=== PATIENT | male | born 1970 | race Caucasian/White ===

== ENCOUNTER 2017-04-25 18:33 | Emergency (ER) | payer MEDICARE, OTHER ==
[~2017-04-25] VITALS: Ht 180.3 cm; Wt 125.0 kg
[2017-04-25 18:45] VITALS: TEMP 36.5; Ht 180.3 cm; Wt 125.0 kg
[2017-04-25] MEDS ORDERED: SODIUM CHLORIDE 0.9% 1000ML 1,000 ML IV STA (18:47)
[2017-04-25 18:52] VITALS: O2SAT 90
[2017-04-25 19:13] LABS: BASO % 0.4 %; BASO ABS # 0.04 K/uL (0-0.2); COMPLETE YES; HEMATOCRIT 41.4 % (42-52); IG% 0.5 %; LYMPH % 32.4 %; LYMPH ABS # 3.32 K/uL (1.2-3.4); MEAN CORPUSCULAR HEMOGLOBIN 30.3 pg (25-34); MEAN CORPUSCULAR HGB CONC 34.8 g/dl (32-36); MEAN PLATELET VOLUME 10.9 fL (7.4-10.4); MONO % 7.7 %; PLATELET COUNT 271 K/uL (130-400); RED BLOOD COUNT 4.76 M/uL (4.7-6.1); WHITE BLOOD COUNT 10.24 K/uL (4.8-10.8)
[2017-04-25 19:23] LABS: PROTHROMBIN TIME (PATIENT) 10.2 SECONDS (9.0-12.0)
--- NOTE | 2017-04-25 19:24 | EMERGENCY ROOM VISIT NOTE ---
History Report prepared by Bk: Bryan Winters Under the Supervision of: Dr. Poli Reyes D.O. First contact with patient: 18:41 Chief Complaint: CHEST PAIN Stated Complaint: CHEST PAIN History of Present Illness The patient is a 46 year old male who presents to the Emergency Room with complaints of constant chest pain beginning an hour ago. The patient states that he woke up from a nap and had excruciating chest pain. He reports that his pain starts in the center of his chest and radiates to the left side. The patient notes that he is also nauseous. He denies shortness of breath, leg pain , leg edema, and vomiting. The patient reports that the dose of nitroglycerin he was given did not help. He states that he has a history of hypertension and hypercholesterolemia. The patient denies having a stress test and heart catheterization performed. He states that his grandmother had an [place] and when she was in her 50s. The patient reports that he has a history of smoking, but denies a history of alcohol use. Nursing notes states the [facility] They report the patient started having a gross amount of chest pain when he woke up. The notes state the patient was not given Aspirin because he said he was allergic. They note he was given nitroglycerin, but his heart rate dropped, so he was not given more. The notes report the patient has a history of cardiac disease. Source of History: patient, nursing staff Onset: an hour ago Position: chest Timing: constant Associated Symptoms: + nausea, No SOB, No vomiting Note: Pt denies leg pain and leg edema Review of Systems See HPI for pertinent positives & negatives. A total of 10 systems reviewed and were otherwise negative. Past Medical & Surgical Medical Problems: (1) Hypercholesteremia (2) Hypertension Family History [place] (myocardial infarction) [facility] Current/Historical Medications Scheduled Amlodipine (Norvasc), Unknown Dose PO DAILY Clonazepam (Klonopin), Unknown Dose PO DAILY Clozapine (Clozaril), Unknown Dose PO DAILY Montelukast Sodium (Singulair), Unknown Dose PO DAILY Sertraline (Zoloft), Unknown Dose PO DAILY Allergies Coded Allergies: Aspirin (Verified Allergy, Severe, "THROAT SWELLS SHUT", 04/25/17) Iodinated Diagnostic Agents (Verified Allergy, Severe, HIVES, 04/25/17) Physical Exam Vital Signs Date Time Temp Pulse Resp B/P (MAP) Pulse Ox O2 Delivery O2 Flow Rate FiO2 04/25/17 23:33 69 98 04/25/17 23:32 68 20 122/82 96 04/25/17 23:03 72 94 04/25/17 23:00 122/82 04/25/17 22:33 71 95 04/25/17 22:03 73 98 04/25/17 22:00 126/78 04/25/17 21:33 84 97 04/25/17 21:10 113/74 04/25/17 21:03 80 113/74 97 04/25/17 21:02 74 22 98 Room Air 04/25/17 20:33 91 30 97 04/25/17 20:03 79 96 04/25/17 19:33 83 98 04/25/17 19:03 80 17 97 04/25/17 18:52 90 Room Air 04/25/17 18:45 95 Room Air 04/25/17 18:45 36.5 95 20 108/85 95 Room Air Physical Exam GENERAL: Patient is awake, alert, and in no acute distress. Patient is resting comfortably and showing no signs of anxiety EYES: The conjunctivae are clear. The pupils are round and reactive. EARS, NOSE, MOUTH AND THROAT: The nose is without any evidence of any deformity. Mucous membranes are moist tongue is midline NECK: The neck is nontender and supple. RESPIRATORY: Normal respiratory effort is noted there is no evidence of wheezing rhonchi or rales CARDIOVASCULAR: Regular rate and rhythm noted there no murmurs rubs or gallops normal S1 normal S2 GASTROINTESTINAL: The abdomen is soft. Bowel sounds are present in all quadrants. Abdomen is nontender MUSCULOSKELETAL/EXTREMITIES: There is no evidence of gross deformity full range of motion is noted in the hips and shoulders SKIN: There is no obvious evidence of any rash. There are no petechiae, pallor or cyanosis noted. NEUROLOGIC: Patient is awake alert and oriented x3 strength is symmetric patellar reflexes are 2+ bilaterally Medical Decision & Procedures ER Provider Diagnostic Interpretation: X-ray results as stated below per interpretation by me and the radiologist. SINGLE VIEW CHEST CLINICAL HISTORY: Atypical chest pain. FINDINGS: An AP, portable, upright chest radiograph is obtained. No prior studies are available for comparison at the time of dictation. The examination is degraded by portable technique, large body habitus, and patient rotation. The cardiomediastinal silhouette is unremarkable. The lungs and pleural spaces are clear. No pneumothorax is seen. The bony thorax is grossly intact. IMPRESSION: No active disease in the chest. Electronically signed by: Bogdan Jules M.D. 04/25/2017 7:37 PM Dictated Date/Time: 04/25/2017 7:36 PM Laboratory Results 04/25/17 19:05 Red Blood Count 4.76, Mean Corpuscular Volume 87.0, Mean Corpuscular Hemoglobin 30.3, Mean Corpuscular Hemoglobin Concent 34.8, Mean Platelet Volume 10.9, Neutrophils (%) (Auto) 57.0, Lymphocytes (%) (Auto) 32.4, Monocytes (%) (Auto) 7.7, Eosinophils (%) (Auto) 2.0, Basophils (%) (Auto) 0.4, Neutrophils # (Auto) 5.84, Lymphocytes # (Auto) 3.32, Monocytes # (Auto) 0.79, Eosinophils # (Auto) 0.20, Basophils # (Auto) 0.04 04/25/17 19:05 Test 04/25/17 19:05 04/25/17 19:08 04/25/17 22:21 White Blood Count 10.24 K/uL (4.8-10.8) Red Blood Count 4.76 M/uL (4.7-6.1) Hemoglobin 14.4 g/dL (14.0-18.0) Hematocrit 41.4 % (42-52) Mean Corpuscular Volume 87.0 fL (80-100) Mean Corpuscular Hemoglobin 30.3 pg (25-34) Mean Corpuscular Hemoglobin Concent 34.8 g/dl (32-36) Platelet Count 271 K/uL (130-400) Mean Platelet Volume 10.9 fL (7.4-10.4) Neutrophils (%) (Auto) 57.0 % Lymphocytes (%) (Auto) 32.4 % Monocytes (%) (Auto) 7.7 % Eosinophils (%) (Auto) 2.0 % Basophils (%) (Auto) 0.4 % Neutrophils # (Auto) 5.84 K/uL (1.4-6.5) Lymphocytes # (Auto) 3.32 K/uL (1.2-3.4) Monocytes # (Auto) 0.79 K/uL (0.11-0.59) Eosinophils # (Auto) 0.20 K/uL (0-0.5) Basophils # (Auto) 0.04 K/uL (0-0.2) RDW Standard Deviation 43.9 fL (36.4-46.3) RDW Coefficient of Variation 13.9 % (11.5-14.5) Immature Granulocyte % (Auto) 0.5 % Immature Granulocyte # (Auto) 0.05 K/uL (0.00-0.02) Prothrombin Time 10.2 SECONDS (9.0-12.0) Prothromb Time International Ratio 1.0 (0.9-1.1) Activated Partial Thromboplast Time 26.7 SECONDS (21.0-31.0) Partial Thromboplastin Ratio 1.0 Anion Gap 10.0 mmol/L (3-11) Est Creatinine Clear Calc Drug Dose 114.1 ml/min Estimated GFR () 93.5 Estimated GFR (Non- 80.6 BUN/Creatinine Ratio 17.4 (10-20) Calcium Level 8.4 mg/dl (8.5-10.1) Total Bilirubin 0.2 mg/dl (0.2-1) Direct Bilirubin < 0.1 mg/dl (0-0.2) Aspartate Amino Transf (AST/SGOT) 15 U/L (15-37) Alanine Aminotransferase (ALT/SGPT) 41 U/L (12-78) Alkaline Phosphatase 103 U/L (45-117) Total Creatine Kinase 129 U/L (39-308) Creatine Kinase MB 1.9 ng/ml (0.5-3.6) Creatine Kinase MB Ratio 1.5 (0-3.0) Total Protein 6.7 gm/dl (6.4-8.2) Albumin 3.5 gm/dl (3.4-5.0) Lipase 120 U/L (73-393) Bedside D-Dimer 276 ng/mlFEU (0-450) Troponin I < 0.015 ng/ml (0-0.045) Laboratory results per my review. Medications Administered Medications (Trade) Dose Ordered Sig/Mainor Route Start Time Stop Time Status Last Admin Dose Admin Sodium Chloride 1,000 ml @ 999 mls/hr Q1H1M STAT IV 04/25/17 18:47 04/25/17 19:47 DC 04/25/17 19:37 999 MLS/HR Al Hydroxide/Mg Hydroxide (Maalox Susp) 30 ml NOW STAT PO 04/25/17 19:37 04/25/17 19:38 DC 04/25/17 20:25 30 ML Pantoprazole Sodium (Protonix Tab) 40 mg NOW STAT PO 04/25/17 19:37 04/25/17 19:38 DC 04/25/17 20:25 40 MG Oxycodone HCl (Roxicodone Immediate Rel Tab) 10 mg NOW STAT PO 04/25/17 23:23 04/25/17 23:24 DC 04/25/17 23:37 10 MG ECG Indication: chest pain Rate (beats per minute): 86 Findings: no ectopy, other (no ST segment abnormality) Comparison ECG Date: no prior available Change: Repeat EKG in the same ER visit: Normal sinus rhythm, 75, no ectopy, no ST segment abnormality: no change from previous tracing. ED Course 1844: The patient was evaluated in room A09A. A complete history and physical examination were performed. 1846: Ordered NSS 1,000 ml @ 999 mls/hr IV 1936: Ordered Protonix Tab 40mg PO, Maalox Susp 30ml PO 2322: Ordered Oxycodone HCl 10mg PO 2345: Upon reevaluation, the patient is resting. I discussed the results and treatment plan with him. He verbalized agreement of the treatment plan. The patient was discharged home. Medical Decision Differential diagnosis: Etiologies such as cardiac ischemia, aortic dissection, pulmonary embolism, pneumonia, pneumothorax, musculoskeletal, infections, pericarditis, myocarditis , esophageal rupture, gastrointestinal, as well as others were entertained. Medication Reconciliation: I attest that I have personally reviewed the patient' s current medications list. Blood pressure screening: Patient was found to have normal blood pressure on screening and does not require follow-up. The patient is a 46-year-old male who presented to the emergency department for evaluation of chest pain. The patient has had ongoing chest pain since the morning of presentation. The patient did not have an EKG consistent with an ST segment elevation [place]. He had serial EKGs as well as serial troponin draws in the emergency department. I discussed the patient's laboratory and radiographic studies with him. I also discussed the limitations of the emergency department workup with him. The patient was encouraged to rest and avoid any strenuous activity. He was encouraged to continue all medications as prescribed and follow -up with his primary care physician as soon as possible as well as discussed the possibility he may require further workup or stress testing. The patient had a heart score of 2-3. Impression Primary Impression: Chest pain Scribe Attestation The scribe's documentation has been prepared under my direction and personally reviewed by me in its entirety. I confirm that the note above accurately reflects all work, treatment, procedures, and medical decision making performed by me. Departure Information Dispostion Home / Self-Care Referrals [facility] Forms HOME CARE DOCUMENTATION FORM, IMPORTANT VISIT INFORMATION Patient Instructions ED Chest Pain Atypical Unkn Cause, My [facility] Additional Instructions Rest and avoid any strenuous activity. Continue all medications as prescribed. Follow-up with your family doctor soon as possible for possible stress testing if symptoms do not improve. Problem Qualifiers Primary Impression: Chest pain Chest pain type: unspecified Qualified Codes: R07.9 - Chest pain, unspecified
[2017-04-25 19:29] LABS: ALT/SGPT 41 U/L (12-78); BLOOD UREA NITROGEN 19 mg/dl (7-18); BUN/CREATININE RATIO 17.4 (10-20); CALCIUM 8.4 mg/dl (8.5-10.1); CARBON DIOXIDE 24 mmol/L (21-32); CHLORIDE 107 mmol/L (98-107); GLUCOSE 85 mg/dl (70-99); POTASSIUM 4.2 mmol/L (3.5-5.1); SODIUM 141 mmol/L (136-145)
[2017-04-25] MEDS ORDERED: CLON1TAB3 PO (19:30)
[2017-04-25] MEDS ORDERED: MONT1TAB3 PO (19:30)
[2017-04-25] MEDS ORDERED: SERT50TA PO (19:30)
[2017-04-25] MEDS ORDERED: AMLO-110 PO (19:30)
[2017-04-25 19:34] LABS: ALKALINE PHOSPHATASE 103 U/L (45-117); AST/SGOT 15 U/L (15-37); CKMB/CK RATIO 1.5 (0-3.0)
[2017-04-25] MEDS ORDERED: CLOZ100T PO (19:34)
[2017-04-25] MEDS ORDERED: ALUMINUM/MAGNESIUM SUSP 30 ML UDC PO STA (19:37)
[2017-04-25] MEDS ORDERED: PANTOprazole SOD 40 MG TAB PO STA (19:37)
--- NOTE | 2017-04-25 19:38 | DIAGNOSTIC IMAGING REPORT ---
SINGLE VIEW CHEST CLINICAL HISTORY: Atypical chest pain. FINDINGS: An AP, portable, upright chest radiograph is obtained. No prior studies are available for comparison at the time of dictation. The examination is degraded by portable technique, large body habitus, and patient rotation. The cardiomediastinal silhouette is unremarkable. The lungs and pleural spaces are clear. No pneumothorax is seen. The bony thorax is grossly intact. IMPRESSION: No active disease in the chest. Electronically signed by: Bogdan Jules M.D. 04/25/2017 7:37 PM Dictated Date/Time: 04/25/2017 7:36 PM
[2017-04-25] MEDS ORDERED: OXYCODONE HCL IR 5 MG TAB (IMMEDIATE RELEASE) PO STA (23:23)
[2017-04-25 23:32] VITALS: BP 122/82
[2017-04-25 23:33] VITALS: PULSE 69; O2SAT 98
== END 2017-04-25 23:32 | disposition home or self-care (01) ==
LOC: C.EDA 18:38
DX: R07.9 Chest pain, unspecified (principal); I10 Essential (primary) hypertension; E78.00 Pure hypercholesterolemia, unspecified; Z79.899 Other long term (current) drug therapy; Z88.6 Allergy status to analgesic agent; Z91.041 Radiographic dye allergy status; Z82.49 Family history of ischemic heart disease and other diseases of the circulatory system